=== PATIENT | male | born 1945 | race Caucasian/White ===

== ENCOUNTER 2016-12-03 09:55 | Day surgery (SDC) | payer MEDICARE ==
[~2016-12-03 09:55] MED LIST: LACTATED RINGERS 1,000 ML IV SCH
[2016-12-03] MEDS ORDERED: LACTATED RINGERS 1,000 ML ONE (10:24)
[2016-12-03] MEDS ORDERED: IV START KIT ONE (10:24)
[2016-12-03] MEDS ORDERED: PROPOFOL 20 ML IV ONE (10:52)
--- NOTE | 2016-12-07 13:35 | SURGPATH ---
[facility] [address] [place] [id number] Patient Name: ARIEL ZEPEDA MR#: [id number] : 1945 Gender: M Specimen #: [id number] Collected: 12/03/2016 Received: 12/04/2016 Reported: 12/07/2016 Submitting Phys: ONEIL FAIR Copy To Phys: [facility] SHERRY VARGAS Clinical History / Pre-Operative Diagnosis: SURVEILLANCE; FAMILY HISTORY OF COLON POLYPS AND CA Specimen Source / Surgical Procedure Performed: #1-HEPATIC FLEXURE COLON POLYP; #2-SIGMOID COLON POLYP AT 20 CM; #3-RECTAL POLYP AT 12 CM Interpretation: 1. COLON, HEPATIC FLEXURE, POLYP, POLYPECTOMY: - TUBULAR ADENOMA 2. COLON, SIGMOID, POLYP AT 20 CM, POLYPECTOMY: - SESSILE SERRATED POLYP - NO DYSPLASIA SEEN 3. RECTUM, POLYP AT 12 CM, POLYPECTOMY: - HYPERPLASTIC POLYP Electronically Signed Out Kristie Mars M.D. Gross Description: #1 The specimen is received in a formalin filled container labeled with the patient's name and "hepatic flexure colon polyp". Two serra biopsies are 0.4 and 0.5 cm. Totally embedded in cassette #1. #2 The specimen is received in a formalin filled container labeled with the patient's name and "sigmoid polyp at 20 cm". A single serra biopsy is 0.3 cm. Totally embedded in cassette #2. #3 The specimen is received in a formalin filled container labeled with the patient's name and "rectal polyp at 12 cm". A polypoid serra biopsy is 0.2 cm. Totally embedded in cassette #3. Yisel Goel Microscopic Description: Part 1: Two fragments of colonic mucosaare seen with crowded glands lined by hyperchromatic nuclei. No high-grade dysplasia or carcinoma is seen. Additional fragments of colonic mucosa are seen with nonspecific superficial hyperplastic change. Part 2: A sessile serrated polyp shows focal widening at the base of the crypts. No dysplasia is seen. Part 3: A fragment of hyperplastic polyp is seen without dysplasia or horizontally oriented crypts. 1: [id number] 2: 16055 3: 19199 D12.3 D12.5 K62.1
== END 2016-12-03 11:44 | disposition home or self-care (01) ==
LOC: SDC 09:55
PROVIDERS: ATTEND Internal Medicine Gastroenterology
PROC: 0DBM8ZX Excision of Descending Colon, Via Natural or Artificial Opening Endoscopic, Diagnostic (ICD-10-PCS; principal; 2016-12-03)
PROC: 0DBL8ZX Excision of Transverse Colon, Via Natural or Artificial Opening Endoscopic, Diagnostic (ICD-10-PCS; 2016-12-03)
PROC: 0DBP8ZX Excision of Rectum, Via Natural or Artificial Opening Endoscopic, Diagnostic (ICD-10-PCS; 2016-12-03)
DX: Z12.11 Encounter for screening for malignant neoplasm of colon (principal); D12.3 Benign neoplasm of transverse colon; D12.4 Benign neoplasm of descending colon; D12.7 Benign neoplasm of rectosigmoid junction; Z80.0 Family history of malignant neoplasm of digestive organs; Z83.71 Family history of colonic polyps; E11.9 Type 2 diabetes mellitus without complications; E78.5 Hyperlipidemia, unspecified; J45.909 Unspecified asthma, uncomplicated; J47.9 Bronchiectasis, uncomplicated; I25.10 Atherosclerotic heart disease of native coronary artery without angina pectoris; Z95.818 Presence of other cardiac implants and grafts; F41.9 Anxiety disorder, unspecified; F32.9 Major depressive disorder, single episode, unspecified; Z79.84 Long term (current) use of oral hypoglycemic drugs
CPT/HCPCS: 45385; J7120